=== PATIENT | male | born 1965 | race American Indian/Alaskan Native ===

== ENCOUNTER 2017-04-17 12:08 | Outpatient (CLI) | payer OTHER ==
--- NOTE | 2017-04-17 12:47 | XRay Report ---
RIGHT HAND, 3 views: History: Right hand pain. The bony architecture is intact. Bony alignment is normal. No soft tissue abnormalities are seen. The joint spaces appear preserved. IMPRESSION: Unremarkable right hand.
== END 2017-04-17 12:09 | disposition home or self-care (01) ==
LOC: XRAY 12:08
PROVIDERS: ATTEND Internal Medicine
DX: M79.641 Pain in right hand (principal)